=== PATIENT | male | born 1965 | race Caucasian/White ===

== ENCOUNTER 2018-12-04 07:02 | Emergency (ER) | payer OTHER ==
[2018-12-04] MEDS ORDERED: Ibuprofen TAB* 600 MG PO ONE (07:22)
[2018-12-04] MEDS ORDERED: Acetaminophen TAB* 325 MG PO ONE (07:22)
[2018-12-04 07:27] VITALS: BP 130/80
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
== END 2018-12-04 08:15 | disposition home or self-care (01) ==
LOC: UCEAST 07:02
DX: M54.5 Low back pain (principal); R20.0 Anesthesia of skin; M25.551 Pain in right hip
CPT/HCPCS: 72110; 99202; A9270-GY; G0463

== ENCOUNTER 2019-01-18 09:42 | Emergency (ER) | payer OTHER ==
[2019-01-18 10:10] VITALS: BP 145/85
--- NOTE | 2019-01-18 11:55 | UC ---
Upper Extremity HPI - HPI Summary HPI Summary: Patient is a 53yo male presenting with R forearm pain after he fell on cement at work a couple hours ago. Note pain worse at proximal forearm that radiates into fingers. Describes pain a throbbing and difficult to pinpoint exact area. Notes swelling of fingers and sweaty hand. Denies numbness and tingling. Denies decreased ROM and strength. Denies bruising. - History of Current Complaint Chief Complaint: UCUpperExtremity Stated Complaint: ARM INJURY Hx Obtained From: Patient Onset/Duration: Sudden Onset Severity Currently: Severe Pain Intensity: 8 Pain Scale Used: 0-10 Numeric - Allergies/Home Medications Allergies/Adverse Reactions: Allergies Allergy/AdvReac Type Severity Reaction Status Date / Time No Known Allergies Allergy Verified 01/18/19 10:10 Home Medications: Home Medications NK [No Home Medications Reported] 01/18/19 [History Confirmed 01/18/19] PMH/Surg Hx/FS Hx/Imm Hx Previously Healthy: Yes - Surgical History Surgical History: Yes Surgery Procedure, Year, and Place: appendectomy - Family History Known Family History: Positive: Unknown, Non-Contributory - Social History Occupation: Employed Full-time Alcohol Use: Rare Substance Use Type: None Smoking Status (MU): Light Every Day Tobacco Smoker Type: Cigarettes Amount Used/How Often: 1/2 PPD Review of Systems All Other Systems Reviewed And Are Negative: Yes Constitutional: Positive: Negative Respiratory: Positive: Negative Cardiovascular: Positive: Negative Musculoskeletal: Positive: Arthralgia - proximal R forearm, Edema - R fingers. Negative: Decreased ROM Neurological: Negative: Weakness, Paresthesia, Numbness Physical Exam Triage Information Reviewed: Yes Appearance: Well-Appearing, No Pain Distress, Well-Nourished Vital Signs: Initial Vital Signs Temp 98 F 01/18/19 10:06 Pulse 75 01/18/19 10:06 Resp 18 01/18/19 10:06 BP 145/85 01/18/19 10:06 Pulse Ox 99 01/18/19 10:06 Vital Signs Reviewed: Yes Eyes: Positive: Conjunctiva Clear ENT: Positive: Hearing grossly normal Neck: Positive: Supple Respiratory: Positive: No respiratory distress Cardiovascular: Positive: Pulses Normal - strong radial pulses b/l, Brisk Capillary Refill Musculoskeletal: Positive: Strength Intact, ROM Intact, Edema @ - fingers of R hand, Other: - generalized tenderness to palpation of proximal R forearm Neurological Exam: Other - sensation grossly intact Neurological: Positive: Alert Psychological: Positive: Age Appropriate Behavior Skin Exam: Normal - no ecchymosis or erythema noted Diagnostics - Radiology R forearm Radiology Interpretation Completed By: Radiologist Summary of Radiographic Findings: IMPRESSION: NO ACUTE OSSEOUS INJURY. IF SYMPTOMS PERSIST, RECOMMEND REPEAT IMAGING. Upper Extremity Course/Dx - Course Course Of Treatment: Discussed negative xrays with patient. Instructed to continue symptomatic treatment including use of sling. Instructed to follow up with Dr. Borrego if pain persists or to go to ED if symptoms worsen. Patient voiced understanding and agreed with the treatment plan. - Differential Dx/Diagnosis Differential Diagnosis/HQI/PQRI: Contusion Provider Diagnosis: Right forearm pain Discharge ED - Sign-Out/Discharge Documenting (check all that apply): Patient Departure All imaging exams completed and their final reports reviewed: Yes - Discharge Plan Condition: Stable Disposition: HOME Patient Education Materials: Arm Pain (ED) Referrals: Chase Borrego MD [Medical Doctor] - If Needed Additional Instructions: As discussed, the xrays of the arm did not show any fractures. Rest, ice, elevate, and use the sling to help relieve pain. You may also use over the counter pain medications as directed for relief of pain. If pain does not resolve, follow up with your PCP or the referral listed below. Go to the emergency room if pain worsens, the arm/hand becomes cold and numb, or you are unable to move the arm/hand. - Billing Disposition and Condition Condition: STABLE Disposition: Home
== END 2019-01-18 12:29 | disposition home or self-care (01) ==
LOC: UCEAST 09:42
DX: M79.631 Pain in right forearm (principal); F17.210 Nicotine dependence, cigarettes, uncomplicated
CPT/HCPCS: 99212; G0463